=== PATIENT | male | born 1955 | race Caucasian/White ===

== ENCOUNTER → 2019-10-08 | Outpatient (CLI) | payer MEDICARE, BC ==
[~2019-10-08] MED LIST: ASPI81CH PO; PSYL5.85P PO
[2019-10-08 14:13] LABS: Alanine Aminotransfer (ALT/SGP 27 U/L (12-78); Albumin, Blood 3.7 g/dL (3.4-5.0); Albumin/Globulin Ratio 1.2 (0.8-1.8); Alk Phos 83 U/L (40-126); Anion Gap 6 mmol/L (6-16); Aspartate Aminotrans (AST/SGOT 13 U/L (12-37); Bilirubin, Total 0.4 mg/dL (0.1-1.0); Blood Urea Nitrogen 16 mg/dL (8-24); Bun/Creatinine Ratio 13.9 (12.0-20.0); CO2, Blood 27 mmol/L (21-32); Calcium, Blood 8.6 mg/dL (8.5-10.1); Chloride, Blood 107 mmol/L (98-108); Creatinine, Blood 1.15 mg/dL (0.60-1.20); Globulin, Blood 3.1 g/dL (2.2-4.0); Glomerular Filtration Rate >60 (60-); Glucose, Blood 260 mg/dL (70-99); Potassium, Blood 4.5 mmol/L (3.5-5.5); Sodium, Blood 140 mmol/L (136-145); Total Protein, Blood 6.8 g/dL (6.4-8.2)
== END | disposition home or self-care (01) ==
LOC: LAB EV 11:16 → LAB SHORT 11:16
PROVIDERS: Physician Assistant Medical
DX: E11.9 Type 2 diabetes mellitus without complications (principal)
CPT/HCPCS: 80053; 83036

== ENCOUNTER → 2019-12-19 | Outpatient (CLI) | payer MEDICARE, BC | END | disposition home or self-care (01) | LOC: LAB 13:10 → LAB SHORT 13:10 | DX: R31.9 Hematuria, unspecified (principal) | CPT/HCPCS: 87086 ==

== ENCOUNTER → 2020-01-12 | Outpatient (CLI) | payer MEDICARE, BC ==
[~2020-01-12] MED LIST changes: +ATORVASTATIN CA20 MG PO; +Metamucil Smooth1 EA PO; +Metformin HCl1000 MG PO; +Norco 5-325 Ta1 EACH PO; +OMEP20ER PO; -PSYL5.85P PO; +TAMSULOSIN HCL0.4 M1 PO
== END | disposition home or self-care (01) ==
LOC: LAB 07:40 → LAB SHORT 07:40
DX: R93.3 Abnormal findings on diagnostic imaging of other parts of digestive tract (principal)
CPT/HCPCS: 83993

== ENCOUNTER → 2020-01-13 | Outpatient (CLI) | payer MEDICARE, BC ==
[~2020-01-13] MED LIST changes: -ATORVASTATIN CA20 MG PO; -Metamucil Smooth1 EA PO; -Metformin HCl1000 MG PO; -Norco 5-325 Ta1 EACH PO; -OMEP20ER PO; +PSYL5.85P PO; -TAMSULOSIN HCL0.4 M1 PO
[2020-01-13 14:07] LABS: Stool Occult Bld Immuno 1 Negative (NEGATIVE); Stool Occult Bld Immuno 2 Negative (NEGATIVE); Stool Occult Bld Immuno 3 Negative (NEGATIVE)
== END | disposition home or self-care (01) ==
LOC: LAB 09:31 → LAB SHORT 09:31 → LAB FUT 01-08 12:25
PROVIDERS: Internal Medicine Gastroenterology
DX: R93.3 Abnormal findings on diagnostic imaging of other parts of digestive tract (principal)
CPT/HCPCS: 82274

== ENCOUNTER 2020-01-19 23:45 | Emergency (ER) | payer MEDICARE, BC ==
[~2020-01-19] VITALS: Ht 193 cm; Wt 108.9 kg
[~2020-01-19 23:45] MED LIST changes: +Metamucil Smooth1 EA PO; -PSYL5.85P PO
[2020-01-20] MEDS ORDERED: TAMSULOSIN HCL0.4 M1 PO
[2020-01-20] MEDS ORDERED: ATORVASTATIN CA20 MG PO (00:01)
[2020-01-20] MEDS ORDERED: Metformin HCl1000 MG PO (00:01)
[2020-01-20] MEDS ORDERED: OMEP20ER PO (00:04)
[2020-01-20] MEDS ORDERED: Norco 5-325 Ta1 EACH PO (00:41)
== END 2020-01-20 01:04 | disposition home or self-care (01) ==
LOC: ER 23:45
DX: N20.1 Calculus of ureter (principal); E11.9 Type 2 diabetes mellitus without complications; K21.9 Gastro-esophageal reflux disease without esophagitis; Z88.5 Allergy status to narcotic agent; Z79.82 Long term (current) use of aspirin; Z79.84 Long term (current) use of oral hypoglycemic drugs; Z87.891 Personal history of nicotine dependence
CPT/HCPCS: 36415; 99283; A9270

== ENCOUNTER 2021-01-19 10:42 | Day surgery (SDC) | payer MEDICARE, BC ==
[~2021-01-19] VITALS: Ht 190.5 cm; Wt 108.9 kg
[~2021-01-19 10:42] MED LIST changes: +ATORVASTATIN CA20 MG PO; +METAMUCIL POWD575 GM PO; +METF500 PO; -Metamucil Smooth1 EA PO; +Norco 5-325 Ta1 EACH PO; +OMEP20ER PO; +TAMSULOSIN HCL0.4 M1 PO
--- NOTE | 2021-01-19 11:15 | NUR ---
01/19/21 Ron5 Jenny Glasgow 1 TRY RIGHT HAND BLEW
== END 2021-01-19 13:01 | disposition home or self-care (01) ==
LOC: ORSCSDS 10:42
PROVIDERS: Surgery
PROC: 0DBL8ZX Excision of Transverse Colon, Via Natural or Artificial Opening Endoscopic, Diagnostic (ICD-10-PCS; principal; 2021-01-19 12:00)
DX: K62.5 Hemorrhage of anus and rectum (principal); D12.3 Benign neoplasm of transverse colon; K60.2 Anal fissure, unspecified; K60.3 Anal fistula; R93.3 Abnormal findings on diagnostic imaging of other parts of digestive tract; E11.9 Type 2 diabetes mellitus without complications; K21.9 Gastro-esophageal reflux disease without esophagitis; E78.5 Hyperlipidemia, unspecified; Z79.82 Long term (current) use of aspirin; Z87.891 Personal history of nicotine dependence; Z79.84 Long term (current) use of oral hypoglycemic drugs; Z79.899 Other long term (current) drug therapy
CPT/HCPCS: 82947; 88305; A9270; J2704; J7120

== ENCOUNTER 2021-02-25 05:57 | Day surgery (SDC) | payer MEDICARE, BC ==
[~2021-02-25] VITALS: Ht 193 cm; Wt 103.9 kg
--- NOTE | 2021-02-25 06:59 | NUR ---
Ambulatory in Day Surgery. History, Chart, Medications and Allergies reviewed before start of procedure.Lungs clear T/O to Auscultation. Patient confirms NPO status and agrees with scheduled surgery. Pre-Op teaching done. Pt verbalizes understanding. Patient States Post-Procedure ride home has been arranged.
--- NOTE | 2021-02-25 09:38 | NUR ---
Patient States Post-Procedure ride home has been arranged. Discharge instructions reviewed with patient. Patient verbalizes understanding. Copy given to patient to take home. Discharged via wheelchair to private car for ride home.
--- NOTE | 2021-02-26 07:16 | NUR ---
02/26/21 0716 Trean Deleon VERIFICATION: EDIT CHART.
== END 2021-02-25 09:35 | disposition home or self-care (01) ==
LOC: ORSCMMR 05:57 → ORD 07:30 → ORSCMMR 09:35
PROVIDERS: Surgery
PROC: 0D8R3ZZ Division of Anal Sphincter, Percutaneous Approach (ICD-10-PCS; principal; 2021-02-25 07:30)
DX: K60.3 Anal fistula (principal); K60.2 Anal fissure, unspecified; I10 Essential (primary) hypertension; E11.9 Type 2 diabetes mellitus without complications; K21.9 Gastro-esophageal reflux disease without esophagitis; I25.10 Atherosclerotic heart disease of native coronary artery without angina pectoris; J44.9 Chronic obstructive pulmonary disease, unspecified; Z87.891 Personal history of nicotine dependence; E78.5 Hyperlipidemia, unspecified; Z79.84 Long term (current) use of oral hypoglycemic drugs; Z79.899 Other long term (current) drug therapy
CPT/HCPCS: 82947; J0694; J1100; J2250; J2370; J2405; J2704; J3010; J7120

== ENCOUNTER 2021-03-12 05:51 | Day surgery (SDC) | payer MEDICARE, BC ==
[~2021-03-12] VITALS: Ht 193 cm; Wt 109.0 kg
[2021-03-12] MEDS ORDERED: COLACE100 MG PO (06:28)
[2021-03-12] MEDS ORDERED: MIRALAX17 GM PO (06:29)
--- NOTE | 2021-03-12 09:05 | NUR ---
PT TO RECOVERY ROOM POST PROCEDURE. PT AWAKE AND CONVERSING APPROPRIATELY; DENIES CHEST PAIN POST PROCEDURE. MONITOR SB WITH PVC'S 50'S, B/P 142/69, AFEBRILE, SPO2 97% RA. R RADIAL SITE NO SWELLING/HEMATOMA, TR BAND IN PLACE 9 CC AIR; RUE POSITIVE PLEUTH POST TR BAND PLACEMENT.
--- NOTE | 2021-03-12 11:45 | NUR ---
PT AMB TO BATHROOM, GAIT STEADY; SITE UNCHANGED.
--- NOTE | 2021-03-12 11:55 | NUR ---
PT DRESSED SELF WITHOUT ISSUE-SITE UNCHANGED. TR BAND REMOVED CLOTH DOT AND WRIST IMMOBILIZER PLACED; IV REMOVED-CANNULA INTACT. PT PLACED IN SLING PER REQUEST.
--- NOTE | 2021-03-12 12:04 | NUR ---
PT RECEIVED DISCHARGE INSTRUCTIONS, SITE MANAGEMENT, MED LIST AND AFTER CARE INSTRUCTIONS; VERBALIZED GOOD UNDERSTANDING. PT LEFT FACILITY VIA W/C, CONDITION STABLE.
== END 2021-03-12 12:04 | disposition home or self-care (01) ==
LOC: MHTC 05:51
DX: I49.3 Ventricular premature depolarization (principal); I25.119 Atherosclerotic heart disease of native coronary artery with unspecified angina pectoris; E11.9 Type 2 diabetes mellitus without complications; K21.9 Gastro-esophageal reflux disease without esophagitis; N40.1 Benign prostatic hyperplasia with lower urinary tract symptoms; N13.8 Other obstructive and reflux uropathy; Z79.82 Long term (current) use of aspirin; Z79.84 Long term (current) use of oral hypoglycemic drugs; Z87.891 Personal history of nicotine dependence
CPT/HCPCS: 76937; 85347; 93005; 93010; 93454; 93571; 99152; 99153; A9270; C1769; C1887; C1894; J1644; J2250; J3010; J7030; J7050; Q9967

== ENCOUNTER → 2022-03-16 | Outpatient (CLI) | payer MEDICARE, BC ==
[~2022-03-16] MED LIST changes: +COLACE100 MG PO; +MIRALAX17 GM PO
== END | disposition home or self-care (01) ==
LOC: LAB 08:48 → LAB SHORT 08:48
DX: L60.2 Onychogryphosis (principal); B35.1 Tinea unguium
CPT/HCPCS: 88305; 88312

== ENCOUNTER → 2023-03-16 | Outpatient (CLI) | payer MEDICARE, BC | END | disposition home or self-care (01) | LOC: LAB 13:17 → LAB SHORT 13:17 | DX: E11.9 Type 2 diabetes mellitus without complications (principal) | CPT/HCPCS: 82043 ==

== ENCOUNTER → 2023-05-31 | Outpatient (CLI) | payer MEDICARE, BC | LOC: LAB 09:28 | DX: N18.2 Chronic kidney disease, stage 2 (mild) (principal); D63.1 Anemia in chronic kidney disease; N25.81 Secondary hyperparathyroidism of renal origin; E55.9 Vitamin D deficiency, unspecified; E78.00 Pure hypercholesterolemia, unspecified; R76.9 Abnormal immunological finding in serum, unspecified; R94.6 Abnormal results of thyroid function studies; G60.9 Hereditary and idiopathic neuropathy, unspecified ==

== ENCOUNTER → 2024-11-18 | Outpatient (CLI) | payer MEDICARE, BC ==
[2024-11-18 15:59] LABS: Bun/Creatinine Ratio 15.6 (12.0-20.0); Calcium, Blood 8.7 mg/dL (8.5-10.1); Creatinine, Blood 1.09 mg/dL (0.60-1.20); Potassium, Blood 4.2 mmol/L (3.5-5.5)
== END ==
LOC: LAB SHORT 14:27 → LAB 14:27
PROVIDERS: Surgery
DX: Z01.812 Encounter for preprocedural laboratory examination (principal)
CPT/HCPCS: 80048

== ENCOUNTER 2024-12-11 06:06 | Day surgery (SDC) | payer MEDICARE, BC ==
[~2024-12-11] VITALS: Ht 190.5 cm; Wt 113.0 kg
[2024-12-11] VITALS (11 sets, daily range): BP systolic 114–164; BP diastolic 53–81
[~2024-12-11 06:06] MED LIST changes: +BISA5EC PO; +GLIP5 PO; +HYDROCODONE-AC1 EA10 PO; +LATA.005SO BOTHEYES; +METAMUCIL POWD798 GM PO; +METO25ER PO; +TADA10TA PO; +TAMS.4ER PO; +Vitamin B Comple1 EA PO; +Vitamin D1000 UNI1 PO
[2024-12-11] MEDS ORDERED: Lactated Ringer's 1,000 ML IV SCH (06:15)
[2024-12-11] MEDS ORDERED: CeFAZolin Sodium 2,000 MG in NS 100 ML IV SCH (06:15)
--- NOTE | 2024-12-11 06:43 | NUR ---
Ambulatory in Day Surgery History, Chart, Medications and Allergies reviewed before start of procedure. Pre-Op teaching done. Pt verbalizes understanding. Patient States Post-Procedure ride home has been arranged.
[2024-12-11] MEDS ORDERED: CeFAZolin Sodium 2,000 MG VIAL ONE (06:49)
[2024-12-11] MEDS ORDERED: Bupivacaine 0.25% Epi 1:200000 30 ML Vial ONE (07:10)
[2024-12-11] MEDS ORDERED: Etomidate 2MG / ML 10ML Vial ONE (07:23)
[2024-12-11] MEDS ORDERED: FentaNYL Citrate 50 MCG/ML 2 ML Injection ONE (07:24)
[2024-12-11] MEDS ORDERED: Phenylephrine HCl 10mg/ml 1 ml Vial ONE (07:52)
--- NOTE | 2024-12-11 08:18 | NUR ---
12/11/24 0818 Marsha Shi 16FR COUDE WAS INSERTED PRIOR TO SURGERY IN A STERILE FASHON BY MARSHA KEARNEY UNDER VERBAL ORDER BY DR. BURDICK. MARSHA RIVERA RN
[2024-12-11] MEDS ORDERED: SuccINYLCHOLINE Chloride 100 MG/5 ML 5MLSYR ONE (09:00)
[2024-12-11] MEDS ORDERED: Lidocaine HCl 2% 20 ML MDV ONE (09:00)
[2024-12-11] MEDS ORDERED: Dexamethasone Sod Phos 10 MG/ML 1ML VIAL ONE (09:00)
[2024-12-11] MEDS ORDERED: Rocuronium Bromide 10 MG/ML 5ML Injection IV ONE (09:00)
[2024-12-11] MEDS ORDERED: Ondansetron HCl 2 MG / ML 2ML Vial ONE (09:00)
[2024-12-11] MEDS ORDERED: Ketorolac Tromethamine 30mg Vial ONE (09:01)
[2024-12-11] MEDS ORDERED: Sugammadex Sodium 200 MG/2ML SDV (100 MG/ML) ONE (09:02)
[2024-12-11] MEDS ORDERED: HYDROcodone 5-APAP 325 TAB PO PRN (09:25)
--- NOTE | 2024-12-11 10:36 | NUR ---
PT HAS TOLERATED FOOD AND FLUID WITHOUT DIFFICULTY. INCISION, CLEAN AND DRY, NO DRAINAGE. PT AMB TO BATHROOM WITH STEADY GAIT. REVIEWED DISCHARGE AND MEDICATION INSTRUCTIONS. PT VERBALIZED UNDERSTANDING. Patient States Post-Procedure ride home has been arranged. Discharged via wheelchair to private car for ride home.
== END 2024-12-11 10:38 | disposition home or self-care (01) ==
LOC: ORSCMMR 06:06 → ORD 07:30 → ORSCMMR 07:30
PROVIDERS: Surgery
PROC: 0YU54JZ Supplement Right Inguinal Region with Synthetic Substitute, Percutaneous Endoscopic Approach (ICD-10-PCS; principal; 2024-12-11 07:30)
PROC: 8E0W4CZ Robotic Assisted Procedure of Trunk Region, Percutaneous Endoscopic Approach (ICD-10-PCS; principal; 2024-12-11 07:30)
DX: K40.90 Unilateral inguinal hernia, without obstruction or gangrene, not specified as recurrent (principal); I10 Essential (primary) hypertension; Z79.84 Long term (current) use of oral hypoglycemic drugs; N40.0 Benign prostatic hyperplasia without lower urinary tract symptoms; E78.5 Hyperlipidemia, unspecified; K21.9 Gastro-esophageal reflux disease without esophagitis; E11.22 Type 2 diabetes mellitus with diabetic chronic kidney disease; N18.9 Chronic kidney disease, unspecified; Z79.899 Other long term (current) drug therapy; Z87.891 Personal history of nicotine dependence
CPT/HCPCS: 82947; A9270; C1781; J0330; J0690; J1100; J1885; J2371; J2405; J3010; J7120